=== PATIENT | female | born 1935 | race Caucasian/White ===

== ENCOUNTER 2017-05-07 11:21 | Inpatient (IN) | payer OTHER, MEDICARE ==
[~2017-05-07] VITALS: Ht 167.6 cm; Wt 72.6 kg
--- NOTE | ~2017-05-07 | EKG ---
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 : 1935 Requested By: Michaela Gonzalez Order Number: [id number] MD: Clay Cooper Measurements Intervals [place] Rate: 58 P: [place]: QRS: 6 QRSD: 139 T: 37 QT: 470 QTc: 462 Interpretive Statements Sinus rhythm Low voltage limb leads Minimal ST depression, lateral leads No previous ECG available for comparison Electronically Signed On 05-07-2017 16:42:42 CONCIERGE MANAGER by Clay Cooper [email or web address] <ELECTRONICALLY SIGNED> By: Clay Cooper MD, [facility] 05/07/17 1642 1141 1141 Clay Cooper MD, FACC /EPI
--- NOTE | ~2017-05-07 | P ---
[facility] [address] PROCEDURE REPORT Name: DREW GARCIA Room #: 352-P ADM IN M.R.#: [id number] Admission: 05/07/17 Attend Phys: Iftikhar Arana MD Discharge: Date of : 31 Report #: [id number] THIS REPORT FOR: //name// CC: OBIE Menchaca MD DATE OF SERVICE: 05/08/2017 DIAGNOSTIC EGD: Patient of Dr. Iftikhar Arana and Dr. Byron Arriaza. INDICATION FOR PROCEDURE: The patient presented with a chief complaint of weakness. She has dementia. Her hemoglobin was 5.5 on admission with an MCV of 60. She has been on Xarelto and recently started taking some naproxen. The etiology of this blood loss is unclear. So, EGD is being performed to try to start the workup for sources of bleeding. Informed consent for this procedure was obtained prior to the administration of any medication. The risks of the procedure which include bleeding, perforation, infection, complications of sedation and the possibility I could miss something have been explained to the patient and she has indicated her consent and her family have indicated their consent for her to have this EGD done. Propofol was slowly titrated before and during this procedure for patient comfort by the anesthesia service. The Slingboxn upper videoscope was introduced through the upper esophageal sphincter and advanced under direct visualization to the descending duodenum. Findings are noted on withdrawal of the scope. The duodenal mucosa appears normal throughout its entirety. Pylorus, normal mucosa, antrum and the prepyloric area, there is some mild erythema, but no erosions, ulcerations or any bleeding sources seen. The antrum of the stomach otherwise appeared normal. Body, normal mucosa, there is a single uncomplicated polyp, size 2-3 mm that is left in situ so as not to cause bleeding. The remaining body of the stomach appears normal. Cardia and fundus show a mild portal hypertensive appearance to the mucosa, but no source of bleeding is seen here either and no hiatal hernia is seen on retroflex view. The scope was then withdrawn into the esophagus. The Z-line is appropriately located at the top of gastric folds and appears normal. The esophageal mucosa appears normal throughout its entirety. Scope was withdrawn. The patient went to the recovery area in stable condition. She tolerated the procedure well. IMPRESSION: Some prepyloric erythema and some portal hypertensive gastropathy appearance to the cardia and fundus of the stomach. Other than that, normal esophagogastroduodenoscopy to descending duodenum except for 2-3 mm polyp in the body of the stomach. My recommendations were to proceed with an M2 small bowel [address] [address] PROCEDURE REPORT Name: DREW GARCIA Room #: 352-P [facility] IN M.R.#: [id number] Admission: 05/07/17 Attend Phys: Iftikhar Arana MD Discharge: Date of : 31 Report #: [id number] video capsule as the next test and I attempted to call Dr. Lopez about seeing, about doing this while she is an inpatient as she is very debilitated and would be difficult for her to come back for this for outpatient. Thank you very much once again for allowing me to participate in her care, Dr. Arana. <ELECTRONICALLY SIGNED> By: Anuradha Aceves DO 05/09/17 1003 1355 2102 Anuradha Aceves DO /nt
--- NOTE | ~2017-05-07 | P ---
[facility] [place] [address] PROCEDURE REPORT Name: DREW GARCIA Room #: 352-P ADM IN M.R.#: [id number] Admission: 05/07/17 Attend Phys: Iftikhar Arana MD Discharge: Date of : 31 Report #: [id number] THIS REPORT FOR: //name// CC: Byron Arana MD DATE OF SERVICE: 05/11/2017 PROCEDURE PERFORMED: Upper endoscopy with deployment of M2 capsule into the duodenum. HISTORY OF PRESENT ILLNESS: The patient is an 81-year-old female with a history of anemia, Hemoccult positive stools. She has had a previous ileostomy for diverticulitis. She has had a drop in her hemoglobin. Upper endoscopy was initially performed, which showed erythematous changes in the prepyloric area. Duodenum was normal. The esophagus and the remaining stomach was normal. Therefore, M2 capsule was ordered. This was read yesterday by Dr. Walker, however, the capsule stayed within the esophagus for 7 hours and then in the stomach for another hour. The capsule only records for 8 hours and therefore, we were not able to get any images of the duodenum and small bowel. The plan therefore is to proceed with placement of a new capsule today in the duodenum via the upper endoscope. DESCRIPTION OF PROCEDURE: The risks and benefits of the procedure were explained to the patient's family, those risks including but not limited to bleeding, perforation, the risk of sedation. They understood these risks and gave informed consent. Sedation was given using propofol per anesthesia. Next, using a standard Ponfacn upper endoscope, the scope was placed in the patient's mouth and advanced under direct vision through the esophagus, stomach and into the second portion of the duodenum. The esophagus was somewhat tortuous and there was a mild extrinsic compression in the upper to mid esophagus. The distal esophagus and GE junction were normal. Overall, the gastric mucosa was normal in the fundus and body. In the antrum, there were several erosions, no evidence of active bleeding. The pylorus was normal and patent. The duodenal bulb, first and second portion were normal. There was no evidence of previous capsule on upper endoscopy today. At this point, the scope was then withdrawn and a M2 capsule delivering device was placed through the channel of the upper endoscope. This was then connected to the holding mechanism and a new M2 capsule placed within the device. Next, the scope was then reintroduced into the patient's mouth and this was advanced through the esophagus, stomach and into the duodenal bulb. The capsule was deployed without difficulty. At this point, the scope was then withdrawn and the capsule delivering device was removed. The scope was once again advanced into the duodenum. The capsule was noted to be in good position, deployed in the duodenum and working well. At this point, the scope was then withdrawn and the procedure terminated. The [address] [address] PROCEDURE REPORT Name: RADHADREW AMANDA Room #: 352-P [facility] IN M.R.#: [id number] Admission: 05/07/17 Attend Phys: Iftikhar Arana MD Discharge: Date of : 31 Report #: [id number] patient tolerated the procedure well. IMPRESSION: 1. Antral erosions, no evidence of active bleeding. 2. Tortuous esophagus. 3. Successful deployment of M2 capsule into the duodenum today as described above. RECOMMENDATIONS: We will await M2 capsule findings. Thank you for allowing me to participate in her care. <ELECTRONICALLY SIGNED> By: Kolby Orourke MD 05/13/17 0814 0932 1119 Kolby Orourke MD /nt
[2017-05-07 11:28] VITALS: BP 98/33
[2017-05-07 12:12] LABS: ANION GAP 8 mmol/L (7-16); BUN 40 mg/dL (7-18); CALCIUM 8.8 mg/dL (8.5-10.1); CHLORIDE 111 mmol/L (98-107); CO2 26 mmol/L (21-32); CREATININE 1.6 mg/dL (0.6-1.0); GLUCOSE 110 mg/dL (74-106); POTASSIUM 4.8 mmol/L (3.5-5.1); SODIUM 145 mmol/L (136-145)
[2017-05-07] MEDS ORDERED: TRAMADOL 50 MG50 MG PO (12:13)
[2017-05-07] MEDS ORDERED: XANAX 0.5 MG0.5 M1 PO (12:13)
[2017-05-07] MEDS ORDERED: LIPITOR10 MG PO (12:13)
[2017-05-07] MEDS ORDERED: CAL-GEST200 MG PO (12:14)
[2017-05-07] MEDS ORDERED: FLAX SEED OIL1000 MG PO (12:14)
[2017-05-07] MEDS ORDERED: SYNTHROID88 MCG PO (12:15)
[2017-05-07] MEDS ORDERED: NAMENDA 10 MG T10 MG PO (12:15)
[2017-05-07] MEDS ORDERED: LOPRESSOR25 PO (12:16)
[2017-05-07] MEDS ORDERED: REMERON15 MG PO (12:16)
[2017-05-07] MEDS ORDERED: PROTONIX 20 MG20 M1 PO ×2 (12:16→12:17)
[2017-05-07] MEDS ORDERED: ZOLOFT50 MG PO (12:18)
[2017-05-07] MEDS ORDERED: ACID REDUCER75 MG PO (12:18)
[2017-05-07] MEDS ORDERED: VITAMIN D2000 UNIT PO (12:19)
[2017-05-07] MEDS ORDERED: XARELTO20 MG PO (12:19)
[2017-05-07] MEDS ORDERED: SALONPAS GEL-P1 EAC1 TRANSDERM (12:20)
[2017-05-07 12:21] LABS: ABSOLUTE NEUTROPHILS 6.6 thou/uL (1.4-8.2); BASOPHILS 0.2 % (0.0-2.0); EOSINOPHILS 1.1 % (0.0-3.0); LYMPHOCYTES 14.2 % (24.0-44.0); MCH 16.8 pg (26.0-34.0); MONOCYTES 10.2 % (1.0-8.0); PLATELET COUNT 236 thou/uL (150-400); POLYS 74.3 % (36.0-66.0); RBC 3.33 mil/uL (4.20-5.00); RDW 22.4 % (10.5-14.5); TROPONIN-I < 0.04 ng/mL (<0.06); WBC 8.9 thou/uL (4.0-11.0)
[2017-05-07] MEDS ORDERED: NAPROSYN500 MG PO (12:21)
[2017-05-07 12:24] LABS: HEMOGLOBIN 5.6 gm/dL (12.0-15.0)
[2017-05-07 13:06] LABS: ANISOCYTOSIS 3+; HYPOCHROMASIA 3+; MICROCYTES 2+; PLATELET ESTIMATE NORMAL; POIKILOCYTOSIS SLIGHT; POLYCHROMASIA 1+; SCHISTOCYTES 1+
[2017-05-07 15:11] LABS: URINE BILIRUBIN NEGATIVE (Negative); URINE BLOOD TRACE (Negative); URINE CLARITY CLEAR; URINE COLOR YELLOW; URINE GLUCOSE-RANDOM* NEGATIVE (Negative); URINE KETONES NEGATIVE (Negative); URINE NITRITE-REFLEX NEGATIVE (Negative); URINE PROTEIN (DIPSTICK) TRACE (Negative); URINE SPECIFIC GRAVITY >= 1.030 (1.005-1.035); URINE UROBILINOGEN 0.2 E.U./dl (0.2-1.0)
[2017-05-07 15:14] LABS: URINE LEUKOCYTES-REFLEX 2+ (Negative)
[2017-05-07 15:28] LABS: SQUAMOUS 4-10 Moderate /LPF (0-3)
[2017-05-07 15:29] LABS: AMORPHOUS URATES Few /LPF (None Seen); BACTERIA-REFLEX >30 Many /HPF (None Seen); FINE GRANULAR CASTS 0-3 Few /LPF (None Seen); MUCUS 4-6 Moderate strn/LPF (None Seen); URINE RBC 3-10 Few /HPF (0-2); URINE WBC-REFLEX >25 Many /HPF (0-5)
[2017-05-07 16:37] VITALS: BP 98/33
[2017-05-07 18:50] VITALS: BP 138/55
[2017-05-07 19:00] VITALS: BP 149/49; BP 149/50
[2017-05-07 20:33] LABS: HEMATOCRIT 19.5 % (37.0-47.0); HEMOGLOBIN 5.4 gm/dL (12.0-15.0)
[2017-05-07 22:32] VITALS: BP 126/60
[2017-05-08 02:00] VITALS: BP 126/60; BP 139/59
[2017-05-08 03:05] VITALS: BP 132/57
[2017-05-08 03:57] LABS: CALCIUM 8.6 mg/dL (8.5-10.1); CREATININE 1.1 mg/dL (0.6-1.0); MAGNESIUM 1.9 mg/dL (1.8-2.4); POTASSIUM 4.2 mmol/L (3.5-5.1)
[2017-05-08 04:36] LABS: HEMOGLOBIN 6.5 gm/dL (12.0-15.0); MCHC 29.7 g/dL (28.0-37.0); RBC 3.42 mil/uL (4.20-5.00); WBC 7.8 thou/uL (4.0-11.0)
[2017-05-08 04:38] LABS: HEMATOCRIT 21.9 % (37.0-47.0); MCH 19.1 pg (26.0-34.0); MCV 64.1 fL (80.0-100.0); RDW 28.1 % (10.5-14.5)
[2017-05-08 06:57] LABS: ABSOLUTE NEUTROPHILS 4.8 thou/uL (1.4-8.2); ATYPICAL LYMPHS 1 %; MYELOCYTES 2 %; NUCLEATED RBCS 1 /100WBC
[2017-05-08 06:58] LABS: ANISOCYTOSIS 3+; HYPOCHROMASIA 3+; MICROCYTES 3+
[2017-05-08 07:00] LABS: OVALOCYTES FEW; POLYCHROMASIA OCCASIONAL
[2017-05-08 07:35] VITALS: BP 175/59
[2017-05-08 08:14] LABS: PLATELET COUNT 197 thou/uL (150-400)
[2017-05-08 10:09] LABS: HEMATOCRIT 24.6 % (37.0-47.0); HEMOGLOBIN 7.2 gm/dL (12.0-15.0)
[2017-05-08 11:55] VITALS: BP 152/43
[2017-05-08 16:12] VITALS: BP 144/56
[2017-05-08 16:43] LABS: HEMATOCRIT 22.4 % (37.0-47.0); HEMOGLOBIN 6.7 gm/dL (12.0-15.0)
[2017-05-08 19:12] VITALS: BP 144/53
[2017-05-09 04:10] VITALS: BP 145/59
[2017-05-09 07:26] VITALS: BP 157/79
[2017-05-09 09:38] LABS: HEMATOCRIT 22.1 % (37.0-47.0); MCH 18.7 pg (26.0-34.0); MCHC 28.9 g/dL (28.0-37.0); MCV 64.5 fL (80.0-100.0); RBC 3.43 mil/uL (4.20-5.00); RDW 28.1 % (10.5-14.5); WBC 6.1 thou/uL (4.0-11.0)
[2017-05-09 09:43] LABS: HEMOGLOBIN 6.4 gm/dL (12.0-15.0)
[2017-05-09 09:59] LABS: CALCIUM 8.5 mg/dL (8.5-10.1); CREATININE 0.9 mg/dL (0.6-1.0); MAGNESIUM 1.8 mg/dL (1.8-2.4); POTASSIUM 4.2 mmol/L (3.5-5.1)
[2017-05-09 13:17] VITALS: BP 161/63; BP 167/78
[2017-05-09 15:10] VITALS: BP 152/68
[2017-05-09 19:30] VITALS: BP 176/69
[2017-05-10 04:00] VITALS: BP 152/60
[2017-05-10 05:22] LABS: HEMATOCRIT 28.4 % (37.0-47.0); HEMOGLOBIN 8.4 gm/dL (12.0-15.0); MCHC 29.8 g/dL (28.0-37.0); MCV 67.3 fL (80.0-100.0); RBC 4.21 mil/uL (4.20-5.00); RDW 30.9 % (10.5-14.5); WBC 8.6 thou/uL (4.0-11.0)
[2017-05-10 05:30] LABS: CALCIUM 9.4 mg/dL (8.5-10.1); CREATININE 0.7 mg/dL (0.6-1.0); MAGNESIUM 1.9 mg/dL (1.8-2.4); POTASSIUM 3.9 mmol/L (3.5-5.1)
[2017-05-10 07:20] VITALS: BP 153/57
[2017-05-10 15:15] VITALS: BP 149/73
[2017-05-10 19:34] VITALS: BP 132/64
[2017-05-11 04:00] VITALS: BP 145/68
[2017-05-11 06:21] LABS: HEMATOCRIT 26.2 % (37.0-47.0); HEMOGLOBIN 7.8 gm/dL (12.0-15.0); MCHC 29.8 g/dL (28.0-37.0); MCV 67.4 fL (80.0-100.0); RBC 3.88 mil/uL (4.20-5.00); RDW 30.8 % (10.5-14.5)
[2017-05-11 06:36] LABS: CALCIUM 8.3 mg/dL (8.5-10.1); CREATININE 0.8 mg/dL (0.6-1.0); MAGNESIUM 1.4 mg/dL (1.8-2.4); POTASSIUM 3.5 mmol/L (3.5-5.1)
[2017-05-11 07:31] VITALS: BP 165/55
[2017-05-11 15:11] VITALS: BP 170/81
[2017-05-11 20:00] VITALS: BP 154/66
[2017-05-12 03:40] LABS: HEMATOCRIT 27.6 % (37.0-47.0); HEMOGLOBIN 8.1 gm/dL (12.0-15.0); MCH 19.9 pg (26.0-34.0); MCHC 29.5 g/dL (28.0-37.0); MCV 67.3 fL (80.0-100.0); RDW 31.1 % (10.5-14.5); WBC 6.7 thou/uL (4.0-11.0)
[2017-05-12 03:53] LABS: CALCIUM 8.2 mg/dL (8.5-10.1); CREATININE 0.7 mg/dL (0.6-1.0); MAGNESIUM 1.4 mg/dL (1.8-2.4); POTASSIUM 3.3 mmol/L (3.5-5.1)
[2017-05-12 04:00] VITALS: BP 162/78
[2017-05-12 05:09] LABS: RBC 4.09 mil/uL (4.20-5.00)
[2017-05-12 07:43] VITALS: BP 177/66
[2017-05-12 16:14] VITALS: BP 170/78
[2017-05-12 20:32] VITALS: BP 166/64
[2017-05-13 03:40] VITALS: BP 179/86
[2017-05-13 08:01] VITALS: BP 162/65
[2017-05-13 10:41] LABS: CALCIUM 8.9 mg/dL (8.5-10.1); CREATININE 0.7 mg/dL (0.6-1.0); MAGNESIUM 1.3 mg/dL (1.8-2.4); POTASSIUM 3.2 mmol/L (3.5-5.1)
[2017-05-13 12:14] VITALS: BP 147/52
[2017-05-13 21:02] VITALS: BP 153/71
[2017-05-14 04:34] LABS: HEMATOCRIT 29.2 % (37.0-47.0); HEMOGLOBIN 8.8 gm/dL (12.0-15.0); MCV 66.6 fL (80.0-100.0); RBC 4.38 mil/uL (4.20-5.00); RDW 31.7 % (10.5-14.5); WBC 5.5 thou/uL (4.0-11.0)
[2017-05-14 05:40] VITALS: BP 150/78
[2017-05-14 08:16] VITALS: BP 150/73
[2017-05-14] MEDS ORDERED: PROTONIX40 M1 PO (08:56)
== END 2017-05-14 17:45 | DRG 377 ==
LOC: ER 11:21 → 3W 12:39 → EROBS 12:39 → 3W 18:50
PROVIDERS: Emergency Medicine; Internal Medicine; Nurse Practitioner
PROC: 0DJ08ZZ Inspection of Upper Intestinal Tract, Via Natural or Artificial Opening Endoscopic (ICD-10-PCS; principal; 2017-05-08)
PROC: 0DJ08ZZ Inspection of Upper Intestinal Tract, Via Natural or Artificial Opening Endoscopic (ICD-10-PCS; 2017-05-11)
DX: K92.2 Gastrointestinal hemorrhage, unspecified (principal); N17.0 Acute kidney failure with tubular necrosis; K76.6 Portal hypertension; F03.91 Unspecified dementia, unspecified severity, with behavioral disturbance; D62 Acute posthemorrhagic anemia; K22.8 Other specified diseases of esophagus; E78.00 Pure hypercholesterolemia, unspecified; M19.90 Unspecified osteoarthritis, unspecified site; Z66 Do not resuscitate; E83.42 Hypomagnesemia; K25.4 Chronic or unspecified gastric ulcer with hemorrhage; K31.7 Polyp of stomach and duodenum; K31.89 Other diseases of stomach and duodenum; I95.9 Hypotension, unspecified; F41.9 Anxiety disorder, unspecified; E86.0 Dehydration; E03.9 Hypothyroidism, unspecified; K21.9 Gastro-esophageal reflux disease without esophagitis; I10 Essential (primary) hypertension; F32.9 Major depressive disorder, single episode, unspecified; Z93.2 Ileostomy status; Z79.01 Long term (current) use of anticoagulants; Z79.899 Other long term (current) drug therapy; Z90.49 Acquired absence of other specified parts of digestive tract; Z86.711 Personal history of pulmonary embolism; Z88.5 Allergy status to narcotic agent
CPT/HCPCS: 10879; 62110; 62900; 70005